=== PATIENT | female | born 1950 | race Caucasian/White ===

== ENCOUNTER 2017-05-20 19:27 | Observation (INO) | payer MEDICARE ==
[~2017-05-20] VITALS: Ht 160 cm; Wt 68.9 kg
--- NOTE | ~2017-05-20 | HEMODYNAMI ---
PATIENT:RACIEL ALMONTE MEDICAL RECORD: [id number] : 54 [id number] ADMISSION DATE: 05/20/17 Generatedon:05/21/201711:04 Patient name: RACIEL ALMONTE Patient #: [id number] SSN: D OB: 1950 Date of study: 05/21/2017 Page: Of Hemodynamic Procedure Report Patient Data Patient Demographics Procedure consent was obtained First Name: RACIEL Gender: Female Last Name: GAGE : 1950 Middle Initial: JAD Age: 66 year(s) Patient #: [id number] Race: Unknown Additional ID: [id number] Contact details [address]: [address] [place] [address] State: [place] City: [place] Zip code: [address] Past Medical History Allergies Allergen Reaction Date Comments Reported Other allergy 05/21/2017 PCN, PHENERGAN, DRIXORAL OIL Admission Admission Data Admission Date: 05/20/2017 Admission Time: 19:27 Lab Results Lab Result Date: 05/21/2017 Lab Result Time: 0:00 Biochemistry Name Units Result Min Max BUN mg/dl 14 --(--*-)-- 7 18 Creatinine mg/dl 1.1 --(--*-)-- 0.6 1.3 CBC Name Units Result Min Max Hemoglobin g/dl 9.5 *-(----)-- 13.5 17.5 Procedure Procedure Types Cath Procedure Diagnostic Procedure LHC LHC w/Coronaries Miscellaneous Procedures Moderate Sedation up to 15 minutes Procedure Description Procedure Date Procedure Date: 05/21/2017 Procedure Start Time: 10:49 Procedure End Time: 11:03 Procedure Staff Name Function Artemio Correa RN Pain Management Nurse Practitioner Talha Iqbal MD Performing Physician Reba Barlow RT Monitor Reese Webster RT Scrub Mya Mullen RN Nurse Procedure Data Cath Procedure Fluoroscopy Diagnostic fluoroscopy Total fluoroscopy Time: 3.3 time: 3.3 min min Diagnostic fluoroscopy Total fluoroscopy dose: 327 dose: 327 mGy mGy Contrast Material Contrast Material Type Amount (ml) Isovue 300 50 Entry Location Entry Primary Successful Side Size Upsize Upsize Entry Closure Kern ccessful Closure Location (Fr) 1 (Fr) 2 (Fr) Remarks Device Remarks Radial Right 6 Fr Mechanical artery Short Compression Estimated blood loss: 5 ml Diagnostic catheters Device Type Used For End Catheter Placement DIAGNOSTIC Kenzie 110cm Procedure 5Fr catheter ([id number]) DIAGNOSTIC AR MOD 5Fr Procedure Catheter ([id number]) Procedure Complications No complications Procedure Medications Medication Administration Route Dosage 0.9% NaCl I.V. 100 ml/hr Oxygen NC 2 l/min Heparin Flush Bag added to field 2 bags (1000units/500ml NS) Lidocaine 2% added to field 20 Radial Cocktail added to field 1 syringe (Verapomil 2mg/Nitro 400mcg/Heparin 1500units) Versed I.V. 2 mg Fentanyl I.V. 25 mcg Radial Cocktail I.A. 1 syringe (Verapomil 2mg/Nitro 400mcg/Heparin 1500units) Hemodynamics Rest HGB: 9.5 (g/dl) Heart Rate: 61 (bpm) Pressure Samples Time Site Value (mmHg) Purpose Heart Use Rate(bpm) 10:54 LV 78/0,6 EDP 70 10:55 AO 85/55(69) Pullback 65 10:55 LV 94/5,7 Pullback 65 Gradients Valve Time Site 1 Site 2 Mean SEP/DFP Peak To Heart Use (mmHg) (sec/min) Peak Rate (mmHg) (bpm) Aortic 10:55 LV AO 6 16 9 65 94/5,7 85/55(69) Calculations Valve P-P Mean Valve Index Valve Source Name Gradient Area Flow (cm2) Aortic 9 6 9 6 Snapshots Pre Cath Intra NCS Post Cath Vital Signs Time Heart Resp SPO2 etCO2 NIBP Rhythm Pain Sedation Rate (ipm) (%) (mmHg) (mmHg) Status Level (bpm) 10:42:27 63 19 100 31.9 119/64(93) NSR 0 (11) 10(A) , No pain 10:47:08 74 19 99 29.7 109/67(86) NSR 0 (11) 10(A) , No pain 10:51:44 70 14 98 32.7 104/62(76) NSR 0 (11) 10(A) , No pain 10:56:21 75 15 94 34.3 98/50(69) NSR 0 (11) 9(A) , No pain 11:00:55 79 15 32.7 103/65(83) NSR 0 (11) 10(A) , No pain Medications Time Medication Route Dose Verified Delivered Reason Notes Effectiveness by by 10:41:46 0.9% NaCl I.V. 100 Kory Kory Per ml/hr Aby Badillo physician RN RN 10:41:56 Oxygen NC 2 l/min Kory Kory Per Aby Badillo physician RN RN 10:42:09 Heparin Flush added 2 bags Kory Kory used for Bag to Aby Badillo procedure (1000units/500ml field CABAN RN NS) 10:42:20 Lidocaine 2% added 20ml Kory Kory for local to vial Lorigan Aby anesthetic RN RN 10:42:31 Radial Cocktail added 1 Kory Kory used for (Verapomil to syringe Aby Badillo procedure 2mg/Nitro field CABAN RN 400mcg/Heparin 1500units) 10:45:11 Versed I.V. 2 mg Kory Kory for sedation Aby Badillo RN RN 10:45:27 Fentanyl I.V. 25 mcg Kory Kory for sedation Aby Badillo RN RN 10:51:48 Radial Cocktail I.A. 1 Kory Talha for (Verapomil syringe Aby Iqbal MD vasodilation 2mg/Nitro RN 400mcg/Heparin 1500units) Procedure Log Time Note 10:21:16 Artemio Correa RN sent for patient. Start room use. 10:21:17 Time tracking: Regular hours 10:21:21 Plan of Care:Hemodynamics will remain stable., Cardiac rhythm will remain stable., Comfort level will be maintained., Respiratory function will remain adequate., Patient/ family verbilizes understanding of procedure., Procedure tolerated without complication., Recovers from procedure without complications.. 10:21:23 Signed procedure consent form obtained from patient. 10:21:40 H&P Date Dictated: 05/21/2017 New H&P dictated by physician.. 10:23:38 Lab Result : BUN 14 mg/dl 10:23:38 Lab Result : Creatinine 1.1 mg/dl 10:23:38 Lab Result : Hemoglobin 9.5 g/dl 10:30:57 Patient received from ED to CCL 1 Alert and oriented. Tansferred to table in Supine position. 10:30:58 Warm blankets applied, and chel hugger turned on for patient comfort. 10:30:59 Correct patient and procedure confirmed by team. 10:31:00 ECG and BP/O2 sat monitors applied to patient. 10:40:18 Zero performed for pressure channel P1 10:41:36 Vital chart was started 10:41:38 Baseline sample Acquired. 10:41:42 Rhythm: sinus rhythm 10::43 Full Disclosure recording started 10:41:44 Pre-procedure instructions explained to patient. 10:41:45 Pre-op teaching completed and patient verbalized understanding. 10:41:46 0.9% NaCl 100 ml/hr I.V. was administered by Kory Badillo RN; Per physician; 10:41:47 Family in patients room. 10:41:48 Patient NPO since Midnight. 10:41:56 Oxygen 2 l/min NC was administered by Kory Badillo RN; Per physician; 10:42:09 Heparin Flush Bag (1000units/500ml NS) 2 bags added to field was administered by Kory Badillo RN; used for procedure; 10:42:18 Patient allergic to Other allergyPCN, PHENERGAN, DRIXORAL OIL 10:42:20 Lidocaine 2% 20ml vial added to field was administered by Kory Badillo RN; for local anesthetic; 10:42:21 Is the patient allergic to Iodine/contrast media? No. 10:42:26 Is patient on blood thinner?Yes 10:42:29 ACC The patient was administered the following blood thiners within the last 24 hours: ACCPlavix 10:42:31 Radial Cocktail (Verapomil 2mg/Nitro 400mcg/Heparin 1500units) 1 syringe added to field was administered by Kory Badillo RN; used for procedure; 10:42:33 Patient diabetic? No. 10:42:34 Patient not . Patient is over age 55. 10:42:39 Previous problem with sedation/anesthesia? No ? 10:42:40 Snore? Yes 10:42:41 Sleep apnea? No 10:42:42 Deviated septum? No 10:42:43 Opens mouth fully? Yes 10:42:43 Sticks out tongue? Yes 10:42:45 Airway obstruction? No ? 10:42:47 Dentures? No ? 10:42:50 Pre procedure: right dorsailis pedis pulse 2+ Normal; easily identifiable; not easily obliterated 10:42:52 Modified Librado's test Ulnar < 7 seconds 10:42:55 Patient pain scale 0/10 ?. 10:43:00 IV patent on arrival in right antecubital with 0.9% NaCl at [facility]. 10:43:05 Lab results completed and on chart. 10:43:08 Right Radial & Right Groin area was prepped with chlora-prep and draped in sterile fashion 10:43:10 Alarms reviewed by R. N. 10:43:10 Sharps counted by scrub and verified by R.N. 10:43:12 --------ALL STOP TIME OUT------ 10:43:13 Final Timeout: patient, procedure, and site verified with staff and physician. All members of the team are in agreement. 10:43:15 Right Radial & Right Groin site verified by team. 10:43:18 Physical assessment completed. ASA score P 2 - A patient with mild systemic disease as per Talha Iqbal MD. 10:43:21 Sedation plan: IV Moderate Sedation Medication:Versed, Fentanyl 10:45:11 Versed 2 mg I.V. was administered by Kory Badillo RN; for sedation; 10:45:27 Fentanyl 25 mcg I.V. was administered by Kory Badillo RN; for sedation; 10:49:06 Zero performed for pressure channel P1 10:49:22 Procedure started. 10:49:24 Use device set Radial Dx or PCI 10:49:26 ACIST Syringe (50795) opened to sterile field. 10:49:28 Bag Decanter () opened to sterile field. 10:49:29 ACIST Hand Control (73611) opened to sterile field. 10:49:30 ACIST Manifold (84182) opened to sterile field. 10:49:30 Tegaderm 4 x 4 (1626W) opened to sterile field. 10:49:32 Medline Cath Pack ([id number]) opened to sterile field. 10:49:32 SHEATH 6FR Slender ([id number]) opened to sterile field. 10:49:33 DIAGNOSTIC WIRE .035 260cm J wire (788052) opened to sterile field. 10:49:34 MBrace Wrist Support ([id number]) opened to sterile field. 10:49:47 Local anesthetic to right radial artery with Lidocaine 2% by Talha Iqbal MD.INITIAL ACCESS ONLY 10:51:40 SHEATH 6FR Slender ([id number]) opened to sterile field. 10:51:48 Radial Cocktail (Verapomil 2mg/Nitro 400mcg/Heparin 1500units) 1 syringe I.A. was administered by Talha Iqbal MD; for vasodilation; 10:52:05 A 6 Fr Short sheath was inserted into the Right Radial artery 10:52:58 A DIAGNOSTIC Kenzie 110cm 5Fr catheter ([id number]) was advanced over the wire and used for Procedure. 10:54:39 LV hemodynamics recorded. 10:54:41 LV gram done using GODOY 10:54:49 Injector settings: Ml/sec: 7, Volume: 15, 10:55:08 EF : 50 % 10:55:31 LCA angiography performed. 10:57:08 Catheter removed. 10:57:39 KENZIE UNABLE TO ENGAGE RCA 10:57:45 A DIAGNOSTIC AR MOD 5Fr Catheter ([id number]) was advanced over the wire and used for Procedure. 10:59:20 RCA angiography performed. 10:59:59 Catheter removed. 11:00:05 TR BAND Standard ([id number]) opened to sterile field. 11:00:15 Sheath removed intact; hemostasis achieved with Mechanical Compression to the Right Radial artery. 11:00:18 Procedure ended.(Physican Out) 11:00:38 Fluoroscopy time 03.30 minutes. 11:00:42 Fluoroscopy dose: 327 mGy 11:00:42 Flurop Dose total: 327 11:00:45 Contrast amount:Isovue 300 50ml. 11:00:46 Sharps counted by scrub and verified by R.N. 11:01:15 TR band inflated with 11cc of air. 11:01:20 Post procedure: right dorsailis pedis pulse 2+ Normal; easily identifiable; not easily obliterated. 11:01:25 Post-procedure physical assessment completed. ASA score P 2 - A patient with mild systemic disease as per Talha Iqbal MD. 11:01:27 Post procedure rhythm: unchanged. 11:01:29 Estimated blood loss: 5 ml 11:01:30 Post procedure instruction explained to patient.Patient verbalizes understanding. 11:01:30 Patient needs reinforcement of post procedure teaching. 11:01:42 Procedure type changed to Cath procedure, Diagnostic procedure, LHC, LHC w/Coronaries, Miscellaneous Procedures, Moderate Sedation up to 15 minutes 11:02:33 Procedure and supply charges have been captured, reviewed, submitted and are correct. 11:02:35 Procedure Complication : No complications 11:02:37 Vital chart was stopped 11:02:37 See physician's report for complete and final results. 11:02:55 Report given to Recovery Room. 11:03:03 Patient transfered to Recovery Room with Bed. 11:03:09 Procedure ended. 11:03:09 Full Disclosure recording stopped 11:03:14 End room use (Document Last) Device Usage Item Name Manufacture Quantity Catalog Hospital Part Current Minima l Lot# / Number Charge Number Stock Stock Serial# Code ACIST Acist 1 80080 835371 687467 849195 20 Syringe Medical (68892) Systems Inc Bag Decanter Microtek 1 2001S 155770 72212 429005 5 (2001S) Medical Inc. ACIST Hand Acist 1 02817 482129 879220 290432 5 Control Medical (92553) Systems Inc ACIST Acist 1 21602 904205 834053 901413 5 Manifold Medical (68594) Systems Inc Tegaderm 4 x 3M 1 1626W 508344 542591 787926 5 4 (1626W) Medline Cath Cardinal 1 [id number] 260584 10561 212071 5 Pack Health ([id number]) SHEATH 6FR Terumo 2 [id number] 846033 719242 923388 40 Slender ([id number]) DIAGNOSTIC St [place] 1 886739 642789 594475 224115 30 WIRE .035 260cm J wire (616518) MBrace Wrist Advanced 1 140-0250-00 642682 89501 840293 5 Support Vascular ([id number]) Dynamics DIAGNOSTIC Terumo 1 40-3141 381647 443608 044734 5 Kenzie 110cm 5Fr catheter (724261) DIAGNOSTIC Cardinal 1 [id number] 870830 414409 092621 15 AR MOD 5Fr Health Catheter (261381S) TR BAND Terumo 1 [id number] 455359 620862 490074 40 Standard ([id number]) Signature Audit [place] Stage Time Signature Unsigned Intra-Procedure 05/21/2017 Reba Barlow 11:04:20 AM RT(R) Signatures Monitor : Reba Barlow Signature : RT Date : Time : [place] [address] [place] [address]
[~2017-05-20 19:27] MED LIST: ABILIFY10 MG PO; ARMOUR THYROID60 M1 PO; CYCLOBENZAPRINE10 MG PO; CYTOTEC200 MCG PO; DESERYL100 MG PO; FLAGYL500 MG PO; FLORANEX / LACT1 TAB PO; HYDROCODON-ACE1 EAC7 PO; IMITREX100 MG PO; LEVAQUIN500 MG PO; MACROBID100 MG PO; NYSTATIN ORAL SU5 ML PO; PROMETRIUM200 MG PO; PROTONIX40 MG PO; PROZAC20 MG PO; QUESTRAN PACK4 G/PKT PO; TOPAMAX100 MG PO; VALTREX1000 MG PO; VANCOMYCIN250 MG/51 PO; VICTOZA0.6 MG/0.1 SQ
[2017-05-20 20:19] LABS: BASOPHILS 0.3 % (0-2); EOSINOPHILS 1.4 % (0-7); HEMATOCRIT 30.5 % (36.0-48.0); HEMOGLOBIN 9.5 g/dL (12-16); IMMATURE GRANULOCYTES 0.2 % (0-5); LYMPHOCYTES 31.3 % (15-50); MCH 27.3 pg (26.0-34.0); MCHC 31.1 g/dL (31.0-37.0); MCV 87.6 fL (80.0-100.0); MEAN PLATELET VOLUME 9.4 fL (7.4-10.4); MONOCYTES 12.2 % (2-11); NEUTROPHILS 54.6 % (40-80); PLATELET COUNT 219 10x3/uL (130-400); RBC 3.48 10x6/uL (4.00-5.40); RDW 15.1 % (11.5-14.5); WBC 6.5 10x3/uL (4.8-10.8)
[2017-05-20 20:35] LABS: ALBUMIN 3.2 g/dL (3.4-5.0); ALKALINE PHOSPHATASE 63 U/L (46-116); ALT (SGPT) 19 U/L (10-68); BILIRUBIN - TOTAL 0.15 mg/dL (0.2-1.3); CALC OSMOLALITY 278 mosm/kg (275-300); CALCIUM 9.1 mg/dL (8.5-10.1); CARBON DIOXIDE 22.8 mmol/L (21.0-32.0); CHLORIDE - SERUM 107 mmol/L (98-107); CREATININE - SERUM 1.4 mg/dL (0.6-1.3); GLUCOSE 92 mg/dL (74-106); POTASSIUM - SERUM 3.8 mmol/L (3.5-5.1); PROTEIN - SERUM 6.5 g/dL (6.4-8.2); SODIUM 139 mmol/L (136-145); UREA NITROGEN 16 mg/dL (7-18); eGFR NON AFRICAN AMERICAN 40 mL/min (90-120)
[2017-05-20 20:46] LABS: CHOL - HDL RATIO 1.8 ratio (2.3-4.1); CHOLESTEROL, TOTAL 152 mg/dL (0-200); CKMB 0.8 U/L (0.0-3.6); CREATINE KINASE 53 UL (21-215); HDL CHOLESTEROL 83 mg/dL (32-96); LDL CHOLESTEROL 57 mg/dL (0-100); LDL-HDL RATIO 0.7 ratio (1.5-3.5); TRIGLYCERIDE 63 mg/dL (30-200)
[2017-05-20 20:48] LABS: TROPONIN-I < 0.017 ng/mL (0.000-0.060)
[2017-05-21 02:50] LABS: CKMB 0.5 U/L (0.0-3.6); CREATINE KINASE 44 UL (21-215); TROPONIN-I < 0.017 ng/mL (0.000-0.060)
[2017-05-21 09:10] LABS: CKMB 0.3 U/L (0.0-3.6); CREATINE KINASE 62 UL (21-215); TROPONIN-I < 0.017 ng/mL (0.000-0.060)
[2017-05-21 09:15] VITALS: Ht 160 cm; Wt 68.9 kg
[2017-05-21 10:07] LABS: ANION GAP 15.1 mmol/L (8-16); CARBON DIOXIDE 21.4 mmol/L (21.0-32.0); CREATININE - SERUM 1.1 mg/dL (0.6-1.3); POTASSIUM - SERUM 4.5 mmol/L (3.5-5.1)
[2017-05-21 10:18] LABS: BASOPHILS 0.1 % (0-2); EOSINOPHILS 0.5 % (0-7); HEMATOCRIT 29.6 % (36.0-48.0); HEMOGLOBIN 9.2 g/dL (12-16); IMMATURE GRANULOCYTES 0.1 % (0-5); LYMPHOCYTES 15.8 % (15-50); MCH 27.4 pg (26.0-34.0); MCHC 31.1 g/dL (31.0-37.0); MCV 88.1 fL (80.0-100.0); MEAN PLATELET VOLUME 9.4 fL (7.4-10.4); MONOCYTES 8.4 % (2-11); NEUTROPHILS 75.1 % (40-80); PLATELET COUNT 241 10x3/uL (130-400); RBC 3.36 10x6/uL (4.00-5.40); RDW 15.1 % (11.5-14.5); WBC 7.9 10x3/uL (4.8-10.8)
[2017-05-21 11:13] LABS: CKMB 0.3 U/L (0.0-3.6); CREATINE KINASE 42 UL (21-215); TROPONIN-I < 0.017 ng/mL (0.000-0.060)
[2017-05-21] MEDS ORDERED: LEVOXYL50 MCG PO (11:34)
[2017-05-21] MEDS ORDERED: LIPITOR10 MG PO (11:35)
[2017-05-21] MEDS ORDERED: DESERYL100 MG PO (11:35)
[2017-05-21] MEDS ORDERED: NEXIUM40 MG PO (11:35)
== END 2017-05-21 15:22 | disposition home or self-care (01) ==
LOC: OBSVTIME → D.CATH 19:27 → D.ER 19:27 → D.SDCHOLD 22:41 → OBSVTIME 22:41 → EDSTATUS 05-21 11:00 → D.ER 05-21 11:00 → D.SDCHOLD 05-21 11:18 → D.ER 05-21 11:18 → D.SDCHOLD 05-21 11:18 → OBSVTIME 05-21 11:20 → D.SDCHOLD 05-21 15:22 → EDSTATUS 05-22 11:00
PROVIDERS: Family Medicine; Internal Medicine Cardiovascular Disease
DX: I25.10 Atherosclerotic heart disease of native coronary artery without angina pectoris (principal); M54.9 Dorsalgia, unspecified

== ENCOUNTER 2017-06-13 12:12 | Emergency (ER) | payer MEDICARE ==
[2017-05-21 09:15] VITALS: BMI 23.7
[~2017-06-13 12:12] MED LIST changes: +LEVOXYL50 MCG PO; +LIPITOR10 MG PO; +NEXIUM40 MG PO
[2017-06-13 13:26] LABS: BASOPHILS 0.3 % (0-2); EOSINOPHILS 1.1 % (0-7); HEMATOCRIT 38.6 % (36.0-48.0); IMMATURE GRANULOCYTES 0.4 % (0-5); MCH 27.9 pg (26.0-34.0); MCHC 31.1 g/dL (31.0-37.0); MCV 89.8 fL (80.0-100.0); MEAN PLATELET VOLUME 9.7 fL (7.4-10.4); MONOCYTES 8.2 % (2-11); PLATELET COUNT 248 10x3/uL (130-400); RDW 17.1 % (11.5-14.5); WBC 7.5 10x3/uL (4.8-10.8)
[2017-06-13 13:29] LABS: APPEARANCE HAZY (CLEAR); BILIRUBIN NEGATIVE (NEGATIVE); COLOR YELLOW (YELLOW); GLUCOSE NEGATIVE (NEGATIVE); KETONE NEGATIVE (NEGATIVE); NITRITE NEGATIVE (NEGATIVE); PROTEIN NEGATIVE (NEGATIVE); UROBILINOGEN NORMAL (NORMAL)
[2017-06-13 13:31] LABS: WHITE CELLS - URINE 0-5 /hpf (0-5)
[2017-06-13 13:32] LABS: EPITHELIAL CELL CAST RARE /lpf (NONE SEEN); HYALINE CAST RARE /lpf (NONE SEEN); MUCUS >1+ /lpf (NONE SEEN); RED CELLS - URINE 0-5 /hpf (0-5)
[2017-06-13 13:33] LABS: BACTERIA FEW /hpf (NONE SEEN)
[2017-06-13 13:45] LABS: ANION GAP 15.6 mmol/L (8-16); BILIRUBIN - TOTAL 0.26 mg/dL (0.2-1.3); CALCIUM 9.7 mg/dL (8.5-10.1); CARBON DIOXIDE 22.4 mmol/L (21.0-32.0); CREATININE - SERUM 1.4 mg/dL (0.6-1.3); PROTEIN - SERUM 8.1 g/dL (6.4-8.2)
== END 2017-06-13 15:49 | disposition home or self-care (01) ==
LOC: D.ER 12:12
PROVIDERS: Emergency Medicine
DX: R51 Headache (principal); R41.3 Other amnesia; I25.10 Atherosclerotic heart disease of native coronary artery without angina pectoris; E11.9 Type 2 diabetes mellitus without complications; I10 Essential (primary) hypertension; Z85.520 Personal history of malignant carcinoid tumor of kidney; E03.9 Hypothyroidism, unspecified

== ENCOUNTER 2017-07-31 13:48 | Observation (INO) | payer MEDICARE ==
[~2017-07-31] VITALS: Ht 160 cm; Wt 64.4 kg
[2017-07-31 15:58] LABS: APPEARANCE CLEAR (CLEAR); BILIRUBIN NEGATIVE (NEGATIVE); COLOR YELLOW (YELLOW); GLUCOSE NEGATIVE (NEGATIVE); KETONE NEGATIVE (NEGATIVE); NITRITE NEGATIVE (NEGATIVE); PROTEIN NEGATIVE (NEGATIVE); UROBILINOGEN NORMAL (NORMAL)
[2017-07-31 16:04] LABS: BASOPHILS 0.3 % (0-2); EOSINOPHILS 1.2 % (0-7); HEMATOCRIT 33.7 % (36.0-48.0); HEMOGLOBIN 10.9 g/dL (12-16); IMMATURE GRANULOCYTES 0.3 % (0-5); LYMPHOCYTES 46.4 % (15-50); MCH 29.1 pg (26.0-34.0); MCHC 32.3 g/dL (31.0-37.0); MCV 90.1 fL (80.0-100.0); MEAN PLATELET VOLUME 9.2 fL (7.4-10.4); NEUTROPHILS 39.8 % (40-80); RBC 3.74 10x6/uL (4.00-5.40); RDW 16.8 % (11.5-14.5); WBC 5.7 10x3/uL (4.8-10.8)
[2017-07-31 16:30] LABS: PLATELET COUNT 184 10x3/uL (130-400)
[2017-07-31 16:36] LABS: INR 1.01 (0.85-1.17); PROTIME 12.9 SECONDS (11.6-15.0)
[2017-07-31 16:37] LABS: APTT 37.8 SECONDS (22.8-39.4)
[2017-07-31 16:47] LABS: ALBUMIN 2.6 g/dL (3.4-5.0); ANION GAP 14.2 mmol/L (8-16); BILIRUBIN - TOTAL 0.25 mg/dL (0.2-1.3); CALCIUM 8.3 mg/dL (8.5-10.1); CREATININE - SERUM 1.3 mg/dL (0.6-1.3); POTASSIUM - SERUM 4.2 mmol/L (3.5-5.1)
[2017-07-31 19:59] VITALS: BP 119/64; BMI 25.2
[2017-08-01] VITALS: BP 110/73
[2017-08-01] MEDS ORDERED: FLUTICASONE PRO16 GM NASAL (01:11)
[2017-08-01] MEDS ORDERED: AZELASTINE137 MCG/0. NASAL (01:12)
[2017-08-01] MEDS ORDERED: MECLIZINE HCL25 MG PO (01:13)
[2017-08-01] MEDS ORDERED: NAMENDA5 MG PO (01:14)
[2017-08-01] MEDS ORDERED: BUSPIRONE HCL7.5 MG PO (01:15)
[2017-08-01] MEDS ORDERED: TRAZODONE HCL150 MG PO (01:16)
[2017-08-01] MEDS ORDERED: LISINOPRIL10 MG PO (01:18)
[2017-08-01] MEDS ORDERED: CYTOTEC200 MCG PO (01:19)
[2017-08-01 04:00] VITALS: BP 113/63
[2017-08-01 08:55] VITALS: BP 110/64
[2017-08-01 12:04] VITALS: BMI 25.1
[2017-08-01 12:23] VITALS: BP 97/62
[2017-08-01 15:24] VITALS: Ht 160 cm; Wt 64.4 kg
[2017-08-01 21:00] VITALS: BP 92/55
[2017-08-02 01:44] VITALS: BP 99/53
[2017-08-02 05:22] VITALS: BP 106/60
[2017-08-02 09:52] VITALS: BP 94/56
[2017-08-02 13:10] VITALS: BP 99/59
[2017-08-02] MEDS ORDERED: LEVAQUIN750 MG PO (15:37)
[2017-08-02] MEDS ORDERED: FLAGYL500 MG PO (15:37)
[2017-08-02] MEDS ORDERED: ANUSOL-HC25 MG RC (15:38)
[2017-08-02 16:03] LABS: HEMATOCRIT 33.2 % (36.0-48.0); HEMOGLOBIN 10.8 g/dL (12-16)
[2017-08-02 17:11] VITALS: BP 94/53
== END 2017-08-02 18:07 | disposition home or self-care (01) ==
LOC: D.ER 13:48 → D.MS 18:34 → OBSVTIME 18:34 → D.MS 08-02 18:07
PROVIDERS: Emergency Medicine; Internal Medicine Nephrology
DX: K64.8 Other hemorrhoids (principal); D62 Acute posthemorrhagic anemia; I25.10 Atherosclerotic heart disease of native coronary artery without angina pectoris; E03.9 Hypothyroidism, unspecified; F32.9 Major depressive disorder, single episode, unspecified; K52.9 Noninfective gastroenteritis and colitis, unspecified